=== PATIENT | female | born 1970 | race Two or more races ===

== ENCOUNTER 2020-10-25 21:19 | Outpatient (CLI) | payer SELFPAY | END 2020-10-25 21:20 | disposition critical access hospital (66) | LOC: EMS 21:19 → EDBD 21:19 → EMS 21:20 | DX: S09.90XA Unspecified injury of head, initial encounter (principal); W01.0XXA Fall on same level from slipping, tripping and stumbling without subsequent striking against object, initial encounter; Y93.01 Activity, walking, marching and hiking; Y92.480 Sidewalk as the place of occurrence of the external cause | CPT/HCPCS: A0425; A0427 ==

== ENCOUNTER 2020-10-25 21:36 | Emergency (ER) | payer SELFPAY ==
--- NOTE | 2020-10-25 21:50 | ED Physician Documentation ---
PD HPI HEAD INJURY - Stated complaint Stated Complaint: GLF, HEAD LAC, CONFUSION, LOC X 1 MIN - History obtained from History obtained from: Patient, EMS - History of Present Illness Mechanism of head injury: Fell Where head injury occurred: Street Timing - onset: Enter time (20:50), Today Pain level now: 2 Location of injury: Right, Front Quality of pain: Dull Associated symptoms: LOC, Amnesia. No: Nausea / vomiting, Neck pain Symptoms improve with: Other (no ameliorating factors) Symptoms worsen with: Other (no exacerbating factors) Contributing factors: Intoxicated. No: Anticoagulated Similar symptoms before: Has not had sx before - Additional information Additional information: BIBA. Patient was at local ([place], had some alcoholic beverages during the evening. At approximately 8:50 PM tonight, she was walking to her vehicle with ; it was dark and she tripped and fell. called 911. EMS was told by that patient had LOC of up to one minute. She also sustained head laceration. Patient had blurred vision but this resolved en route to ED. EMS measured FSBS of 119. EMS notes that patient is perseverating at times in that she has asked some questions repeatedly despite having the questions answered (such as repeatedly asking where her is, but reacting each time as if she is just learning new information). She also is having some amnesia for event as well as some disorientation (for example, in ED, she [place] she [place] [facility]; asked where she was tonight, she says she was at her relatives house and is surprised when I tell her she was at the [facility]). Patient initially denies any pain, but during H+P, she gradually begins to c/o mild bifrontal headache. Review of Systems Eyes: reports: Decreased vision (bilateral blurry vision after falling, but resolved en route). denies: Photophobia Ears: reports: Reviewed and negative Nose: reports: Reviewed and negative Cardiac: reports: Reviewed and negative Respiratory: reports: Reviewed and negative GI: reports: Reviewed and negative : denies: Incontinent Skin: reports: Laceration (s) (scalp laceration) Musculoskeletal: reports: Reviewed and negative Neurologic: reports: Confused, Headache, Head injury, LOC. denies: Generalized weakness, Focal weakness, Numbness, Difficulty speaking, Seizure PD PAST MEDICAL HISTORY - Past Medical History Past Medical History: No - Present Medications Home Medications: Ambulatory Orders Medication Instructions Recorded Confirmed No Known Home Medications 10/25/20 10/25/20 - Allergies Allergies/Adverse Reactions: Allergies Allergy/AdvReac Type Severity Reaction Status Date / Time No Known Drug Allergies Allergy Verified 10/25/20 21:49 - Living Situation Living Situation: reports: With family Living Arrangement: reports: At home PD ED PE NORMAL - Vitals Vital signs reviewed: Yes - General General: No acute distress, Well developed/nourished, Other (on backboard with cervical collar in place. awake, alert, follows commands reliably and easily. conversant although occasionally repeats some questions that were already answered. she is disoriented to place and amnestic for event and some retrograde amnesia) - HEENT HEENT: PERRL, EOMI, Moist mucous membranes - Neck Neck: No bony TTP - Cardiac Cardiac: RRR, No murmur - Respiratory Respiratory: No respiratory distress, Clear bilaterally - Abdomen Abdomen: Soft, Non tender - Back Back: No CVA TTP, No spinal TTP, Other (C-T-L-S midline and paraspinal palpation performed on log roll, no tenderness to palpation) - Derm Derm: Normal color, Warm and dry - Extremities Extremities: No deformity, No tenderness to palpate, Normal ROM s pain, No edema - Neuro Neuro: seismic interpreter 2-12 intact, No motor deficit, No sensory deficit, Normal speech Eye Opening: Spontaneous Motor: Obeys Commands Verbal: Confused GCS Score: 14 PD ED PE EXPANDED - HEENT HEENT: PERRL, EOMI, Other (right frontoparietal scalp laceration, approximately 1.5 cm length with irregular margins and some avulsed skin that prevents approximation of wound edges. no bony tenderness nor step-off. dried blood on scalp, no active bleeding. no battles sign, no racoon eyes) Results - Vitals Vitals: Oxygen O2 Source Room air - Rads (name of study) CT head Radiology: Prelim report reviewed, See rad report CT cervical spine Radiology: Prelim report reviewed, See rad report PD MEDICAL DECISION MAKING - ED course Complexity details: reviewed results, considered differential, d/w patient ED course: shortly after CT head and cervical spine results were made available to me (no acute/emergent/concerning findings), I went to reevaluate patient. She was no longer in the room and I was informed by ED RN that patient removed her cervical collar and insisted on leaving. ED RN tells me she was not acting odd or confused but that she said she felt fine and didn't feel that she needed to be in the ED any longer. When I first evaluated her, I had talked to her about possibly repairing her scalp laceration (although the wound edges looked like they would be difficult to reapproximate due to avulsed skin), and she expressed to me that she was not interested in repair of the laceration. Given the lack of findings on the CT head and CT cervical spine, as well as lack of elements of HPI, ROS, and physical exam to suggest other potential serious injury (such as pulmonary, abdominal, or extremity injury that would require other testing), my suspicion was that she was exhibiting confusion and amnesia due to combination of concussion and, possible, some degree of alcohol intoxication. It would have been preferable to observe patient in ED for a period of a few hours to see that she does not develop worsening or new signs/symptoms of concern, but would likely have been discharged home in such a scenario. It would also have been preferable to have the benefit of reexamining her, in general, and specifically reevaluating her scalp laceration to review options for repair. Despite her mild disorientation, she was polite, calm, and was logical and rational in the course of our conversation on the initial encounter, and thus I do not feel she would need to be brought back to the ED against her will. Departure - Departure Disposition: ED Elope Clinical Impression: Concussion Qualifiers: Encounter type: initial encounter Loss of consciousness presence/duration: with LOC of 30 min or less Qualified Code(s): S06.0X1A - Concussion with loss of consciousness of 30 minutes or less, initial encounter Scalp laceration Qualifiers: Encounter type: initial encounter Qualified Code(s): S01.01XA - Laceration wit hout foreign body of scalp, initial encounter Condition: Good Discharge Date/Time: 10/25/20 22:56
[2020-10-25] MEDS ORDERED: TETANUS/DIPHTHERIA/PERTUSSIS 0.5 ML SYRINGE IM ONE (21:51)
[2020-10-25 22:16] VITALS: BP 125/90
--- NOTE | 2020-10-26 08:11 | CT Report ---
PROCEDURE: HEAD WO INDICATIONS: fall, LOC, confused TECHNIQUE: Noncontrast 4.5 mm thick angled axial sections acquired from the foramen magnum to the vertex. For r adiation dose reduction, the following was used: automated exposure control, adjustment of mA and/or kV according to patient size. COMPARISON: Correlation is made with the accompanying cervical spine CT, 10/25/2020 FINDINGS: Image quality: Excellent. CSF spaces: Basal cisterns are patent. No extra-axial fluid collections. Ventricles are normal in size and shape. Brain: No midline shift. No intracranial masses or hemorrhage. Gregorio-white matter interface is norm al. Skull and face: Calvarium and visualized facial bones are intact, without suspicious lesions. Sinuses: Visualized sinuses and mastoids are clear. IMPRESSION: No intracranial hemorrhage is seen. No significant intracranial abnormality is seen. Note: No significant discrepancy from the preliminary report. Reviewed by: Rober Dickerson MD on 10/26/2020 7:10 AM KATIE Approved by: Rober Dickerson MD on 10/26/2020 7:10 AM KATIE Station ID: [id number]
--- NOTE | 2020-10-26 08:12 | CT Report ---
PROCEDURE: CERVICAL SPINE WO INDICATIONS: fall, head injury with LOC and AMS TECHNIQUE: Noncontrast 3 mm thick sections acquired from the skull base to the T4 level. Sagittal and coronal r eformats were then constructed. For radiation dose reduction, the following was used: automated exp osure control, adjustment of mA and/or kV according to patient size. COMPARISON: Correlation is made with the accompanying head CT, 10/25/2020. FINDINGS: Image quality: Excellent. Bones: No fractures or dislocations. Visualized superior ribs are intact. Mild disc space narrowing can be seen at the C3-C4 and C4-C5 levels. Mild posteriorly directed endpla te osteophytes can be seen at these levels. Soft tissues: Prevertebral soft tissues are normal in thickness. No paravertebral hematomas. No ap ical pneumothoraces. IMPRESSION: Negative for fracture. Early degenerative change. Note: No significant discrepancy from the preliminary report. Reviewed by: Rober Dickerson MD on 10/26/2020 7:11 AM KATIE Approved by: Rober Dickerson MD on 10/26/2020 7:11 AM KATIE Station ID: [id number]
== END 2020-10-25 22:56 | disposition left against medical advice (07) ==
LOC: EDBD → ED 21:36
DX: S06.0X1A Concussion with loss of consciousness of 30 minutes or less, initial encounter (principal); S01.01XA Laceration without foreign body of scalp, initial encounter; W01.0XXA Fall on same level from slipping, tripping and stumbling without subsequent striking against object, initial encounter; Y93.01 Activity, walking, marching and hiking; Y92.830 Public park as the place of occurrence of the external cause; Z23 Encounter for immunization
CPT/HCPCS: 90471; 99282; 99284